=== PATIENT | male | born 1965 ===

== ENCOUNTER 2018-01-20 10:54 | Emergency (ER) | payer MEDICAID ==
[2018-01-20 11:03] VITALS: BP 160/90
--- NOTE | 2018-01-20 11:18 | ED PDOC ---
Arrival/HPI - General Time Seen by Provider: 01/20/18 11:03 Historian: Patient - History of Present Illness Narrative History of Present Illness (Text): 01/20/18 11:18 52 year old male presents to the emergency department by microarray specialist s/p snorting to a bag of heroin. Patient states he went to the [facility], who initially alerted the paramedics. He admits to snorting a bag of heroin at 4am. Patient has no complaints he denies any other drug use, ETOH, fevers, chills, headache, dizziness, chest pain, shortness of breath, dyspnea on exertion, cough, abdominal pain, nausea, vomiting, diarrhea, back pain, neck pain, or any other complaint. Time/Duration: Prior to Arrival Symptom Course: Unchanged Activities at Onset: Light Context: [facility] Past Medical History - Provider Review Nursing Documentation Reviewed: Yes Family/Social History - Physician Review Nursing Documentation Reviewed: Yes Family/Social History: No Known Family HX Allergies/Home Meds Allergies/Adverse Reactions: Allergies No Known Allergies Allergy (Verified 01/20/18 11:34) Home Medications: Home Meds Medication Instructions Recorded Confirmed RX: No Known Home Med 01/20/18 01/20/18 Review of Systems - Physician Review All systems were reviewed & negative as marked: Yes - Review of Systems Constitutional: absent: Fevers Respiratory: absent: SOB, Cough Cardiovascular: absent: Chest Pain Gastrointestinal: absent: Abdominal Pain, Diarrhea, Nausea, Vomiting, Appetite Changes Musculoskeletal: absent: Back Pain, Neck Pain Skin: absent: Rash Neurological: absent: Headache, Dizziness Physical Exam Vital Signs Temp Pulse Resp BP Pulse Ox 01/20/18 11:02 98.4 F 100 H 18 160/90 H 96 Temperature: Afebrile Blood Pressure: Hypertensive Pulse: Tachycardic Respiratory Rate: Normal Appearance: Positive for: Well-Appearing, Non-Toxic, Comfortable Pain Distress: None Mental Status: Positive for: Alert and Oriented X 3 - Systems Exam Head: Present: Atraumatic, Normocephalic Pupils: Present: PERRL (2mm reactive bilaterally) Extroacular Muscles: Present: EOMI Conjunctiva: Present: Normal Mouth: Present: Moist Mucous Membranes Neck: Present: Normal Range of Motion Respiratory/Chest: Present: Clear to Auscultation, Good Air Exchange. No: Respiratory Distress, Accessory Muscle Use Cardiovascular: Present: Regular Rate and Rhythm, Normal S1, S2. No: Murmurs Abdomen: No: Tenderness, Distention, Peritoneal Signs Back: Present: Normal Inspection Upper Extremity: Present: Normal Inspection. No: Cyanosis, Edema Lower Extremity: Present: Normal Inspection. No: Edema Neurological: Present: GCS=15, CN II-XII Intact. No: Speech Normal (pressured speech) Skin: Present: Warm, Dry, Normal Color. No: Rashes Psychiatric: Present: Alert, Oriented x 3, Other (restlessness) Medical Decision Making ED Course and Treatment: 01/20/18 11:18 Impression: 52 year old male who presents to the emergency department s/p snorting a bag of heroin. Plan: -- Reassess and disposition Progress Notes: Re-eval: Patient is alert and awake. Heart rate is: 96. Patient is stable for dischagre home. 01/20/18 12:09 - Scribe Statement The provider has reviewed the documentation as recorded by the Patricia Nino Provider Scribe Attestation: All medical record entries made by the Scribe were at my direction and personally dictated by me. I have reviewed the chart and agree that the record accurately reflects my personal performance of the history, physical exam, medical decision making, and the department course for this patient. I have also personally directed, reviewed, and agree with the discharge instructions and disposition. Disposition/Present on Arrival - Present on Arrival Any Indicators Present on Arrival: No - Disposition Have Diagnosis and Disposition been Completed?: Yes Diagnosis: Heroin abuse Disposition Time: 12:00 Patient Problems: Current Active Problems Problem Status Onset Heroin abuse Acute Condition: STABLE Discharge Instructions (ExitCare): Drug Abuse and Drug Addiction (DC) Additional Instructions: NIRANJAN MORALES, thank you for letting us take care of you today. Your provider was Ni Clemons MD and you were treated for SUBSTANCE ABUSE. The emergency medical care you received today was directed at your acute symptoms. If you were prescribed any medication, please fill it and take as directed. It may take several days for your symptoms to resolve. Return to the Emergency Department if your symptoms worsen, do not improve, or if you have any other problems. Please contact your doctor or call one of the physicians/clinics you have been referred to that are listed on the Patient Visit Information form that is included in your discharge packet. Bring any paperwork you were given at discharge with you along with any medications you are taking to your follow up visit. Our treatment cannot replace ongoing medical care by a primary care provider outside of the emergency department. Thank you for allowing the [facility] team to be part of your care today. If you had an X-Ray or CT scan: A Radiologist will review the ED reading if any change in treatment is needed we will contact you. If you had a blood, urine, or wound culture: It will take several days for the results, if any change in treatment is needed we will contact you. If you had an STI test: It will take 48 hours for the results. Please call after 1 week if you have not heard back. Forms: [employer] (Sudanese)
[2018-01-20 11:35] VITALS: BMI 27.1
[2018-01-20 13:18] VITALS: PULSE 90; RESP 16; TEMP 97.9; O2SAT 100
== END 2018-01-20 12:44 | disposition home or self-care (01) ==
LOC: MERGE 10:54 → ED 10:54
DX: F11.10 Opioid abuse, uncomplicated (principal)